=== PATIENT | female | born 2000 | race Two or more races ===

== ENCOUNTER 2019-11-10 09:08 | Emergency (ER) | payer OTHER ==
[~2019-11-10] VITALS: Ht 157.5 cm; Wt 62.1 kg
--- NOTE | 2019-11-10 09:33 | Emergency Room Report ---
History of Present Illness General Chief Complaint: Female Urogenital Problems Source: Patient Present Illness HPI Patient presents with vaginal irritation. Her menstruation was just ending and she had sex. They were using lotion and she might have reacted to that. She denies abdominal discomfort. Her last menstruation was normal for her. She never had this problem before. Denies fevers or chills. There is no dysuria. There is no change in bowels. She denies exposure to COVID-19 positive patients. No fevers, chills, sore throat, chest pain, palpitations, nausea, vomiting, diarrhea, abdominal pain, shortness of breath, joint pain, dizziness, headache. 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 Patient History Past Medical History: see triage record Social History: Denies: smoking, alcohol use Social History Narrative Has almost 3-year-old at home Now: No Nursing Documentation-[facility] Past Medical History: No Stated History Review of Systems Constitutional: Denies: fever ENT: Denies: throat pain Respiratory: Denies: cough Gastrointestinal: Reports: see HPI Genitourinary: Reports: see HPI Skin: Denies: rash All Other Systems: negative except mentioned in HPI Physical Exam Vital Signs Date Time Temp Pulse Resp B/P (MAP) Pulse Ox O2 Delivery O2 Flow Rate FiO2 11/10/19 09:13 98.2 91 16 127/91 (103) 99 Room Air Sp02 EP Interpretation: reviewed, normal General Appearance: well appearing, no apparent distress, GCS 15 Head: normocephalic Eyes: bilateral eye normal inspection, bilateral eye PERRL ENT: moist mucus membranes Cardiovascular #1: regular rate, rhythm Gastrointestinal: normal inspection Genitourinary: adnexa normal, cervix normal, os closed, urethra normal, uterus normal, other Musculoskeletal: gait/station normal Neurologic: alert, grossly normal Psychiatric: mood/affect normal Skin: normal color, no rash Medical Decision Making Diagnostic Impression: Primary Impression: Monilial vaginitis ER Course Patient presents with vaginal irritation. Differential includes UTI, bacterial vaginosis, reaction to lotion, herpes amongst others. Pelvic exam is indicated. Urinalysis sent. Wet mount ordered. Urinalysis clear. negative. Wet mount positive yeast. Discussed findings with patient and treatment plan. 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 Patient stable for outpatient observation and treatment. Laboratory Tests Test 11/10/19 09:20 Urine Color Pale yellow Urine Appearance Clear Urine pH 7 (4.5-8.0) Urine Specific [place] 1.005 (1.005-1.035) Urine Protein Negative (NEGATIVE) Urine Glucose (UA) Negative (NEGATIVE) Urine Ketones Negative (NEGATIVE) Urine Blood 1+ (NEGATIVE) H Urine Nitrite Negative (NEGATIVE) Urine Bilirubin Negative (NEGATIVE) Urine Urobilinogen Normal MG/DL (0.0-1.0) Urine Leukocyte Esterase 3+ (NEGATIVE) H Urine RBC 0-2 /HPF (0 - 2) Urine WBC 2-4 /HPF (0 - 2) Urine Squamous Epithelial Cells Occasional /LPF Urine Bacteria None /HPF (NONE) Urine HCG, Qualitative Negative (NEGATIVE) Microbiology Date/Time Source Procedure Growth Status 11/10/19 10:00 Vaginal Wet Prep - Final Complete Last Vital Signs Date Time Temp Pulse Resp B/P (MAP) Pulse Ox O2 Delivery O2 Flow Rate FiO2 11/10/19 11:28 98.2 86 16 127/91 99 Room Air Status: improved Disposition: HOME, SELF-CARE Condition: Improved Scripts Clotrimazole (GYNE-LOTRIMIN*) 45 Gm Cream.appl 1 APPLIC VG QHS, #45 GM 0 Refills Prov: Kevin Kearney MD 11/10/19 Kevin Kearney MD Nov 10, 2019 09:33
[2019-11-10 10:11] LABS: APPEARANCE,URINE CLEAR; BILIRUBIN, URINE NEGATIVE (NEGATIVE); COLOR,URINE PALE YELLOW; GLUCOSE, URINE (UA) NEGATIVE (NEGATIVE); KETONES,URINE NEGATIVE (NEGATIVE); LEUKOCYTE ESTERASE ,URINE 3+ (NEGATIVE); NITRITE,URINE NEGATIVE (NEGATIVE); PH,URINE 7 (4.5-8.0); PROTEIN,URINE NEGATIVE (NEGATIVE); UROBILINOGEN,URINE NORMAL MG/DL (0.0-1.0)
[2019-11-10] MEDS ORDERED: GYNE-LOTRIMIN45 GM VG (11:23)
[2019-11-10 11:28] VITALS: BP 127/91
== END 2019-11-10 11:28 | disposition home or self-care (01) ==
LOC: EMR 09:40
DX: B37.3 Candidiasis of vulva and vagina (principal)
CPT/HCPCS: 81003; 81025; 87210; Z7502; 99283